=== PATIENT | female | born 1990 | race Caucasian/White ===

== ENCOUNTER 2023-01-05 18:43 | Emergency (ER) | payer BC ==
[~2023-01-05] VITALS: Ht 165.1 cm; Wt 65.8 kg
--- NOTE | 2023-01-05 19:00 | NUR ---
TRIAGE DONE , PATIENT IS STABLE , NO SIGNS AND SYMPTOMS OF DISTRESS. SLEEPING ON THE STRETCHER WITH TWO EMS WATCHING HER IN THE HALLWAY. ALL NEEDS OF PATIENT ARE BEING ATTENDED. WAITING FOR AVAILABLE ROOM.
--- NOTE | 2023-01-05 19:30 | NUR ---
[id number] FRM HOME FOUND UNRESPONSIVE, POSS OD, S/P 4MG NASAL, 2MG IM NARCAN, 4MG ZOFRAN. PT APPEARS TO BE RESTING WITH EYES CLOSED, CHEST RISE IS EVEN AND UNLABORED.
--- NOTE | 2023-01-05 19:33 | NUR ---
PT AWAKE AND RESPONSIVE; PROVIDED PT WITH URINE SAMPLE. PT NOT ABLE TO URINATE AT THIS TIME.
[2023-01-05] MEDS ORDERED: NALO4SPR BNOSTRILS (23:11)
[2023-01-06 01:14] VITALS: BP 99/67; TEMP 98.1; O2SAT 93
--- NOTE | 2023-01-06 01:14 | NUR ---
FAMILY CALLED, STEP FATHER JESSICA WILL PARLOR MAID THE PT FOR DISCHARGE IN 10 MINUTES
--- NOTE | 2023-01-06 01:16 | NUR ---
Patient discharged to home in stable condition. Written and verbal after care instructions given. Patient verbalizes understanding of instruction.
== END 2023-01-06 01:44 | disposition home or self-care (01) ==
LOC: ER 18:56
DX: R40.4 Transient alteration of awareness (principal); T40.601A Poisoning by unspecified narcotics, accidental (unintentional), initial encounter; Z88.0 Allergy status to penicillin; Z88.8 Allergy status to other drugs, medicaments and biological substances; Y92.009 Unspecified place in unspecified non-institutional (private) residence as the place of occurrence of the external cause